=== PATIENT | female | born 2000 ===

== ENCOUNTER 2022-07-19 07:51 | Outpatient (CLI) | payer OTHER | END 2022-07-19 09:35 | disposition home or self-care (01) | LOC: PRENATAL 07:51 | PROVIDERS: ATTEND Obstetrics & Gynecology Maternal & Fetal Medicine | DX: O36.80X0 Pregnancy with inconclusive fetal viability, not applicable or unspecified (principal); Z36 Encounter for antenatal screening of mother; Z3A.14 14 weeks gestation of pregnancy ==

== ENCOUNTER 2022-09-01 08:04 | Outpatient (CLI) | payer OTHER | END 2022-09-01 09:30 | disposition home or self-care (01) | LOC: PRENATAL 08:04 | PROVIDERS: ATTEND Obstetrics & Gynecology Maternal & Fetal Medicine | DX: O35.3XX0 Maternal care for (suspected) damage to fetus from viral disease in mother, not applicable or unspecified (principal); O35.9XX0 Maternal care for (suspected) fetal abnormality and damage, unspecified, not applicable or unspecified; Z3A.20 20 weeks gestation of pregnancy ==

== ENCOUNTER 2022-11-24 12:30 | Outpatient (CLI) | payer OTHER | END 2022-11-24 13:30 | disposition home or self-care (01) | LOC: PRENATAL 12:30 | PROVIDERS: ATTEND Obstetrics & Gynecology Maternal & Fetal Medicine | DX: O26.849 Uterine size-date discrepancy, unspecified trimester (principal); O35.9XX0 Maternal care for (suspected) fetal abnormality and damage, unspecified, not applicable or unspecified; O36.8199 Decreased fetal movements, unspecified trimester, other fetus; Z3A.32 32 weeks gestation of pregnancy ==